=== PATIENT | male | born 1935 | race Caucasian/White ===

== ENCOUNTER 2019-11-15 14:48 | Emergency (ER) | payer OTHER ==
[~2019-11-15] VITALS: Ht 172.7 cm; Wt 86.6 kg
== END 2019-11-15 19:18 | disposition home or self-care (01) ==
LOC: ER 14:48
DX: S01.121A Laceration with foreign body of right eyelid and periocular area, initial encounter (principal); W18.09XA Striking against other object with subsequent fall, initial encounter; Y93.89 Activity, other specified; Y92.018 Other place in single-family (private) house as the place of occurrence of the external cause; Y99.8 Other external cause status

== ENCOUNTER 2019-11-22 09:24 | Emergency (ER) | payer OTHER ==
[~2019-11-22] VITALS: Ht 172.7 cm; Wt 83.9 kg
[2019-11-22] MEDS ORDERED: LANTUS SOL100 UNIT/1 (09:37)
[2019-11-22] MEDS ORDERED: IVERSARTAN (09:39)
[2019-11-22] MEDS ORDERED: NORVASC5 MG PO (09:40)
[2019-11-22] MEDS ORDERED: GLUCOTROL XL5 MG PO (09:40)
[2019-11-22] MEDS ORDERED: LIPITOR20 MG PO (09:40)
[2019-11-22] MEDS ORDERED: TAMS0.4C PO (09:41)
[2019-11-22] MEDS ORDERED: ALOPURINOL (09:42)
== END 2019-11-22 10:25 | disposition home or self-care (01) ==
LOC: ER 09:24
DX: Z48.02 Encounter for removal of sutures (principal)

== ENCOUNTER 2019-11-23 11:34 | Outpatient (CLI) | payer OTHER ==
[~2019-11-23 11:34] MED LIST: ALOPURINOL; GLUCOTROL XL5 MG PO; IVERSARTAN; LANTUS SOL100 UNIT/1; LIPITOR20 MG PO; NORVASC5 MG PO; TAMS0.4C PO
== END 2019-11-23 15:49 | disposition home or self-care (01) ==
LOC: TOM 11:34
DX: G44.309 Post-traumatic headache, unspecified, not intractable (principal); S09.90XA Unspecified injury of head, initial encounter

== ENCOUNTER 2020-04-10 12:22 | Emergency (ER) | payer OTHER ==
[~2020-04-10] VITALS: Ht 172.7 cm; Wt 90.7 kg
== END 2020-04-10 17:18 | disposition home or self-care (01) ==
LOC: ER 12:22
DX: L03.116 Cellulitis of left lower limb (principal); L03.115 Cellulitis of right lower limb; R60.0 Localized edema

== ENCOUNTER 2021-12-10 09:22 | Emergency (ER) | payer OTHER ==
[~2021-12-10] VITALS: Ht 170.2 cm; Wt 83.9 kg
[2021-12-10] MEDS ORDERED: IRBESARTAN300 MG PO (09:46)
[2021-12-10] MEDS ORDERED: ALLOPURINOL100 MG PO (09:46)
== END 2021-12-10 13:26 | disposition home or self-care (01) ==
LOC: ER 09:22
DX: M54.50 Low back pain, unspecified (principal)

== ENCOUNTER 2023-08-06 13:26 | Inpatient (IN) | payer OTHER ==
[~2023-08-06] VITALS: Ht 167.6 cm; Wt 160.0 kg
[~2023-08-06 13:26] MED LIST changes: +ALLOPURINOL100 MG PO; +IRBESARTAN300 MG PO
[2023-08-06 15:21] LABS: HEMATOCRIT 30.6 % (39.0-48.0); HEMOGLOBIN 10.1 g/dL (13-16.00); MEAN CELL VOLUME 91.2 fL (80.0-100.00); MEAN CORPUSCULAR HGB CONC 32.9 g/dl (32.0-36.0); PLATELET COUNT 291 K/uL (150-450); RED BLOOD COUNT 3.36 M/uL (4.00-6.00); RED CELL DISTRIBUTION WIDTH 15.5 % (11.5-14.5)
[2023-08-06 15:36] LABS: ALBUMIN 3.9 gm/dL (3.4-5.0); BILIRUBIN TOTAL 0.78 mg/dL (0.3-1.2); CALCIUM 8.6 mg/dL (8.5-10.1); GFR 7.5; GLOBULINA 3.5 G/DL (2.4-3.5); POTASSIUM 4.77 mEq/L (3.5-5.1); TOTAL PROTEIN 7.4 gm/dL (6.4-8.2)
[2023-08-06 15:43] LABS: CREATININE SERUM 6.96 mg/dL (0.70-1.30)
[2023-08-06 17:39] LABS: PH,URINE 5.5 (5.0-8.0); URINE APPEARANCE Clear; URINE BILIRRUBIN Negative (NEGATIVE); URINE BLOOD Negative; URINE COLOR Yellow; URINE GLUCOSE Negative (NEGATIVE); URINE LEUKOCYTE Trace; URINE NITRATE Negative; URINE PROTEIN Trace (NEGATIVE); URINE UROBILINOGEN 0.2 E.U./dl
[2023-08-06 17:40] LABS: URINE EPITHELIAL CELLS 5.7 uL (0.0-38.8)
[2023-08-06 17:42] LABS: URINE BACTERIA > 9821.5 uL (0.0-1933); URINE RBC 0.5 uL (0.0-20.8)
[2023-08-07 01:59] LABS: INR 1.21; PARTIAL THROMBOPLASTIN TIME 25.2 SECONDS (22.0-34.0); PROTHROMBIN TIME 12.5 SECONDS (9.0-11.5)
== END 2023-08-07 07:43 | disposition expired | DRG 683 ==
LOC: ER 13:26 → SURH 21:02
PROVIDERS: Nurse Practitioner Family; ADMIT Internal Medicine; ATTEND Internal Medicine
PROC: 0BH17EZ Insertion of Endotracheal Airway into Trachea, Via Natural or Artificial Opening (ICD-10-PCS; principal; 2023-08-06)
PROC: 5A1935Z Respiratory Ventilation, Less than 24 Consecutive Hours (ICD-10-PCS; 2023-08-06)
PROC: B020ZZZ Computerized Tomography (CT Scan) of Brain (ICD-10-PCS; 2023-08-06)
PROC: BW21ZZZ Computerized Tomography (CT Scan) of Abdomen and Pelvis (ICD-10-PCS; 2023-08-06)
DX: N17.9 Acute kidney failure, unspecified (principal); F05 Delirium due to known physiological condition; N39.0 Urinary tract infection, site not specified; N13.8 Other obstructive and reflux uropathy; E11.9 Type 2 diabetes mellitus without complications; I73.9 Peripheral vascular disease, unspecified; N40.1 Benign prostatic hyperplasia with lower urinary tract symptoms; Z20.822 Contact with and (suspected) exposure to COVID-19; I11.0 Hypertensive heart disease with heart failure; I50.9 Heart failure, unspecified